=== PATIENT | female | born 1970 | race Caucasian/White ===

== ENCOUNTER → 2020-04-05 | Outpatient (CLI) | payer OTHER | LOC: KOH-I 15:41 | DX: M79.672 Pain in left foot (principal) | CPT/HCPCS: 73630 ==

== ENCOUNTER → 2020-05-09 | Outpatient (CLI) | payer OTHER | LOC: EMI 04-13 10:15 | DX: M79.672 Pain in left foot (principal) | CPT/HCPCS: 73718 ==

== ENCOUNTER 2021-04-03 08:38 | Emergency (ER) | payer OTHER | END 2021-04-03 11:30 | disposition home or self-care (01) | LOC: ER1 08:38 | DX: S61.012A Laceration without foreign body of left thumb without damage to nail, initial encounter (principal); Z23 Encounter for immunization; W45.8XXA Other foreign body or object entering through skin, initial encounter | CPT/HCPCS: 12001; 90715; 99282 ==

== ENCOUNTER 2021-05-19 18:37 | Emergency (ER) | payer OTHER ==
[2021-05-19 19:52] LABS: RED BLOOD COUNT 4.41 M/UL (4.00-5.10); WHITE BLOOD COUNT 9.7 K/UL (4.5-11.0)
[2021-05-19 20:17] LABS: BUN/CREATININE RATIO 12 (0-10)
== END 2021-05-19 22:40 | disposition home or self-care (01) ==
LOC: ER1 18:37
PROVIDERS: Family Medicine
DX: H53.8 Other visual disturbances (principal); R20.2 Paresthesia of skin; R27.0 Ataxia, unspecified; R07.9 Chest pain, unspecified; R06.00 Dyspnea, unspecified; Z88.6 Allergy status to analgesic agent
CPT/HCPCS: 70450; 70496; 70498; 71045; 80053; 82550; 82553; 82962; 84439; 84443; 84484; 85025; 93005; 99285; Q9967